=== PATIENT | female | born 1970 | race Caucasian/White ===

== ENCOUNTER 2018-05-26 10:39 | Emergency (ER) | payer BC, OTHER ==
--- NOTE | 2018-05-26 12:34 | ED ---
HPI Chest Pain - HPI Summary HPI Summary: Pt is a 47 y/o female who presents to the ED c/o rib pain. She states 3 weeks ago she noticed a small lump on the side of her right breast. Pt states the swollen lump was tender and felt like somebody kicked her. The lump went away after 5 days, then the pain moved down to the right side of her ribs. She feels tiny lumps along her ribcage and now can see her veins, stating that the pain feels like its at the surface. Pt felt a sharp pain while sleeping last night, and today says the area is very tender. Today she noticed a ~4 inch long region surrounding her vein that is very tender. Pt denies any SOB. She denies any hx of gallbladder issues or cholecystectomy. Pt was recently on Keflex for 3 weeks due to an ENT, tooth, and eye infection. She is a smoker. - History of Current Complaint Chief Complaint: EDChestWallPain Time Seen by Provider: 05/26/18 12:16 Hx Obtained From: Patient Onset/Duration: Started Weeks Ago - 3, Still Present Timing: Constant Current Severity: Moderate Pain Intensity: 3 Pain Scale Used: 0-10 Numeric Chest Pain Location: Right Lateral - Ribcage Chest Pain Radiates: No Character: Sharp/Stabbing, Other: - Tender Aggravating Factor(s): Other: - Palpation Alleviating Factor(s): Nothing Associated Signs and Symptoms: Negative: Shortness of Breath - Allergy/Home Medications Allergies/Adverse Reactions: Allergies Allergy/AdvReac Type Severity Reaction Status Date / Time amoxicillin Allergy Abdominal Verified 05/26/18 14:18 Pain PMH/Surg Hx/FS Hx/Imm Hx Respiratory History: Reports: Hx Pneumonia GI History: Reports: Other GI Disorders - Rectal hemorrhage Denies: Hx Gall Bladder Disease - Surgical History Surgery Procedure, Year, and Place: Tonsillectomy Infectious Disease History: No Infectious Disease History: Denies: Traveled Outside the [place] in Last 30 Days - Family History Known Family History: Positive: Diabetes, Other - Gallstones - Social History Alcohol Use: None Hx Substance Use: No Substance Use Type: Reports: None Hx Tobacco Use: Yes Smoking Status (MU): Light Every Day Tobacco Smoker Review of Systems Positive: Chest Pain - Right ribcage Negative: Shortness Of Breath All Other Systems Reviewed And Are Negative: Yes Physical Exam - Summary Physical Exam Summary: Appearance: Well appearing, no pain distress Skin: warm, dry, reflects adequate perfusion Head/face: normal Eyes: EOMI, NOEL ENT: normal Neck: supple, non-tender Respiratory: CTA, breath sounds present Cardiovascular: RRR, pulses symmetrical Abdomen: right-sided chest tenderness, soft Bowel: present Musculoskeletal: normal, strength/ROM intact Neuro: normal, sensory motor intact, A&Ox3 Triage Information Reviewed: Yes Vital Signs On Initial Exam: Initial Vitals Temp Pulse Resp BP Pulse Ox 97.9 F 72 16 135/82 99 05/26/18 10:51 05/26/18 10:51 05/26/18 10:51 05/26/18 10:51 05/26/18 10:51 Vital Signs Reviewed: Yes Diagnostics - Vital Signs Vital Signs Temp Pulse Resp BP Pulse Ox 05/26/18 10:51 97.9 F 72 16 135/82 99 - Laboratory Result Diagrams: 05/26/18 13:24 05/26/18 13:24 Lab Statement: Any lab studies that have been ordered have been reviewed, and results considered in the medical decision making process. - Radiology CXR Xray Interpretation: No Acute Changes - NO ACTIVE CARDIOPULMONARY DISEASE IS NOTED. ED physician reviewed radiology report. Radiology Interpretation Completed By: Radiologist Re-Evaluation - Re-Evaluation First Eval Re-Evaluation Time: 13:09 Change: Unchanged Comment: Pt is worried about a blood clot and would like further testing for this. Chest Pain Course/Dx - Course Course Of Treatment: Pt is a 47 y/o female who presents to the ED c/o rib pain. She states 3 weeks ago she noticed a small lump on the side of her right breast. Pt states the swollen lump was tender and felt like somebody kicked her. The lump went away after 5 days, then the pain moved down to the right side of her ribs. She feels tiny lumps along her ribcage and now can see her veins, stating that the pain feels like its at the surface. Pt felt a sharp pain while sleeping last night, and today says the area is very tender. Today she noticed a ~4 inch long region surrounding her vein that is very tender. Pt denies any SOB. A physical exam revealed right-sided chest tenderness. A CXR was negative. Pt was worried about a blood clot and requested further testing. D -dimer was negative. Final dx is musculoskeletal chest pain. Pt is discharged and is agreeable with this plan. - Chest Pain Differential Diagnosis/HQI/PQRI: Chest Wall, Lower Respiratory Infection, Pulmonary Embolism - Diagnoses Provider Diagnoses: Musculoskeletal chest pain Discharge - Sign-Out/Discharge Documenting (check all that apply): Patient Departure - Discharge - Discharge Plan Condition: Stable Disposition: HOME Prescriptions: Ibuprofen TAB* [Motrin TAB* 600 MG] 600 mg PO Q8H PRN #15 tab MDD 3 PRN Reason: Pain Patient Education Materials: Chest Pain (ED) Referrals: Turner CONTRERSA,Hiro Conroy [Primary Care Provider] - 3 Days Additional Instructions: RETURN TO THE ED WITH ANY NEW OR WORSENING SYMPTOMS. - Billing Disposition and Condition Condition: STABLE Disposition: Home - Attestation Statements Document Initiated by Scribe: Yes Documenting Scribe: Yovana Sharma Provider For Whom Scribe is Documenting (Include Credential): Dariel Frazier MD Scribe Attestation: Yovana Frias scribed for Dariel Frazier MD on 05/26/18 at 1422. Scribe Documentation Reviewed: Yes Provider Attestation: The documentation as recorded by the Yovana burnette accurately reflects the service I personally performed and the decisions made by Dariel manuel MD
--- NOTE | 2018-05-26 12:54 | RAD ---
Indication: Chest pain 2 views of the chest including dual energy PA views and straight no mediastinal shift. Heart is of normal size and configuration. Lung zhao appear clear. IMPRESSION: No active cardiopulmonary disease is noted.
[2018-05-26 13:33] LABS: ABS Basophils 0.1 10^3/ul (0-0.2); ABS Eosinophils 0.1 10^3/ul (0-0.6); ABS Lymphocytes 2.3 10^3/ul (1.0-4.8); ABS Monocytes 0.3 10^3/ul (0-0.8); ABS Neutrophils 6.6 10^3/ul (1.5-7.7); ABS Nucleated RBC 0 10^3/ul; Eosinophil % 0.7 % (0-6); Hematocrit 36 % (35-47); Lymphocyte % 24.4 % (25-47); Mean Corpuscular HGB Conc 34 g/dl (31-36); Mean Corpuscular Hemoglobin 28 pg (27-31); Mean Corpuscular Volume 83 fL (80-97); Mean Platelet Volume 7.3 um3 (7.4-10.4); Nucleated Red Blood Cells % 0; Platelet Count 319 10^3/ul (150-450); Red Blood Count 4.29 10^6/ul (4.00-5.40); Red Cell Distribution Width 16 % (10.5-15); White Blood Count 9.3 10^3/ul (3.5-10.8)
[2018-05-26 13:53] LABS: EGFR Non-African American 81.9 (>60)
[2018-05-26 14:17] VITALS: BP 128/76
== END 2018-05-26 14:16 | disposition home or self-care (01) ==
LOC: ED 10:39
DX: R07.89 Other chest pain (principal); F17.210 Nicotine dependence, cigarettes, uncomplicated; Z88.3 Allergy status to other anti-infective agents
CPT/HCPCS: 36415; 71046; 80053; 84484; 84702; 85025; 85379; 85730; 99282